=== PATIENT | female | born 1965 | race Native Hawaiian/Other Pacific Islander ===

== ENCOUNTER 2016-04-26 11:34 | Outpatient (CLI) | payer OTHER ==
[~2016-04-26 11:34] MED LIST: CALCIUM + D600 MG PO; CARAFATE1 GM PO; CLINDAMYCIN300 MG PO; CLON1TAB18 PO; CYCL10TA35 PO; FISH OIL1200 M1 PO; FURO20TA67 PO; GRALISE600 MG PO; HYDACET7.5 PO; IBUPROFEN200 MG PO; LISI5TAB10 PO; MECLIZINE25 M1 PO; METAN1 PO; METF500T PO; NAPROSYN500 MG PO; NEURONTIN800 MG PO; NEXIUM40 M1 PO; NYST100048 PO; OXYB5TAB56 PO; PROAIR HFA IN; TOPAMAX25 MG PO; TOPAMAX50 MG PO; TRAM50TA PO
[2016-04-26 13:03] LABS: PLATELET COUNT 293 K/uL (152-353)
[2016-04-26 13:57] LABS: SODIUM 136 mmol/L (136-145)
== END 2016-04-26 19:15 | disposition home or self-care (01) ==
LOC: LABW 11:34
PROVIDERS: Family Medicine
DX: I10 Essential (primary) hypertension (principal); E11.9 Type 2 diabetes mellitus without complications; K21.9 Gastro-esophageal reflux disease without esophagitis; M25.562 Pain in left knee
CPT/HCPCS: 36415; 80053; 80061; 81000; 82043; 82306; 82570; 83036; 84439; 84443; 84550; 85027

== ENCOUNTER 2016-05-23 09:34 | Outpatient (CLI) | payer OTHER ==
[2016-05-23 09:55] LABS: PLATELET COUNT 288 K/uL (152-353)
[2016-05-23 13:00] LABS: POTASSIUM 4.1 mmol/L (3.6-5.2); SODIUM 137 mmol/L (136-145)
== END 2016-05-23 20:08 | disposition home or self-care (01) ==
LOC: LABW 09:34
PROVIDERS: Family Medicine
DX: I10 Essential (primary) hypertension (principal); E11.9 Type 2 diabetes mellitus without complications; K21.9 Gastro-esophageal reflux disease without esophagitis; M25.562 Pain in left knee; E55.9 Vitamin D deficiency, unspecified
CPT/HCPCS: 36415; 80053; 80061; 81000; 82043; 82306; 82570; 83036; 84439; 84443; 84550; 85027

== ENCOUNTER 2016-06-22 09:07 | Outpatient (CLI) | payer OTHER | END 2016-06-22 19:13 | disposition home or self-care (01) | LOC: MAMMO 09:07 | DX: Z12.31 Encounter for screening mammogram for malignant neoplasm of breast (principal) | CPT/HCPCS: G0202-TC ==

== ENCOUNTER 2018-03-30 08:44 | Emergency (ER) | payer BC ==
[~2018-03-30] VITALS: Ht 162.6 cm; Wt 90.7 kg
[2018-03-30 09:10] VITALS: TEMP 98.5
[2018-03-30 09:41] VITALS: BP 118/92
== END 2018-03-30 09:41 | disposition home or self-care (01) ==
LOC: ED 08:44
DX: R59.9 Enlarged lymph nodes, unspecified (principal); E11.9 Type 2 diabetes mellitus without complications
CPT/HCPCS: 99281

== ENCOUNTER 2018-04-03 10:23 | Outpatient (CLI) | payer BC | END 2018-04-03 22:32 | disposition home or self-care (01) | LOC: RAD 10:23 | DX: R59.0 Localized enlarged lymph nodes (principal) ==

== ENCOUNTER 2018-05-22 11:40 | Outpatient (CLI) | payer BC, OTHER | END 2018-05-22 20:29 | disposition home or self-care (01) | LOC: RESP 11:40 | DX: I10 Essential (primary) hypertension (principal) | CPT/HCPCS: 93005 ==

== ENCOUNTER 2018-07-27 14:24 | Observation (INO) | payer BC, OTHER ==
[~2018-07-27] VITALS: Ht 162.6 cm; Wt 92.8 kg
[2018-07-27 15:47] LABS: PLATELET COUNT 568 K/uL (152-353)
[2018-07-27 16:09] LABS: POTASSIUM 4.3 mmol/L (3.6-5.2)
[2018-07-27 16:45] VITALS: BP 150/93; TEMP 97.6; Ht 162.6 cm; Wt 92.8 kg
[2018-07-27 20:00] VITALS: BP 106/67; TEMP 98.3
[2018-07-27] MEDS ORDERED: RANITIDINE 150150 MG PO (21:07)
[2018-07-27] MEDS ORDERED: PRED10TA27 PO (21:10)
[2018-07-27] MEDS ORDERED: BENA10TA3 PO (21:11)
[2018-07-27] MEDS ORDERED: PROMETHAZINE HY25 MG PO (21:12)
[2018-07-27] MEDS ORDERED: TRAMADOL HYDROC50 MG PO (21:13)
[2018-07-27] MEDS ORDERED: ALLERCLEAR10 MG PO (21:14)
[2018-07-27] MEDS ORDERED: METFORMIN ER1000 MG PO (21:14)
[2018-07-27] MEDS ORDERED: FURO20TA67 PO (21:15)
[2018-07-27] MEDS ORDERED: CYCL10TA35 PO (21:15)
[2018-07-27] MEDS ORDERED: LOVASTATIN10 MG PO (21:16)
[2018-07-27] MEDS ORDERED: PAROXETINE10 MG PO (21:17)
[2018-07-27] MEDS ORDERED: OMEPRAZOLE DR40 MG PO (21:18)
[2018-07-27] MEDS ORDERED: NEURONTIN800 MG PO (21:20)
[2018-07-27] MEDS ORDERED: CALTRATE 600+D1 TAB PO (21:22)
[2018-07-27] MEDS ORDERED: HYDROCO/APAP1 T14 PO (21:22)
[2018-07-27] MEDS ORDERED: IRON27 MG PO (21:24)
[2018-07-27] MEDS ORDERED: CLONAZEP ODT1 MG PO (21:25)
[2018-07-27] MEDS ORDERED: MOBIC15 MG PO (21:25)
[2018-07-27] MEDS ORDERED: GLIM2TAB PO (21:26)
[2018-07-27] MEDS ORDERED: LEVOFLOXACIN500 MG PO (21:26)
[2018-07-27] MEDS ORDERED: TOPAMAX50 MG PO (21:55)
[2018-07-28] VITALS: BP 123/71; TEMP 98
[2018-07-28 04:00] VITALS: BP 114/73; TEMP 98
[2018-07-28 08:00] VITALS: BP 129/78; TEMP 97.9
[2018-07-28 08:29] LABS: PLATELET COUNT 500 K/uL (152-353)
[2018-07-28 08:44] LABS: POTASSIUM 3.4 mmol/L (3.6-5.2)
== END 2018-07-28 13:38 | disposition home or self-care (01) ==
LOC: MED/SURG 14:24
PROVIDERS: ADMIT Family Medicine
DX: K52.89 Other specified noninfective gastroenteritis and colitis (principal); R11.2 Nausea with vomiting, unspecified; R19.7 Diarrhea, unspecified; I10 Essential (primary) hypertension; K21.9 Gastro-esophageal reflux disease without esophagitis; E11.9 Type 2 diabetes mellitus without complications; J44.0 Chronic obstructive pulmonary disease with (acute) lower respiratory infection; J20.9 Acute bronchitis, unspecified
CPT/HCPCS: 80053; 81000; 85027; 87086; 87088; 94640; 94664; 94760; 96365; 96366; 99220; G0378; G0379; J1650; J1956

== ENCOUNTER 2018-09-17 12:55 | Outpatient (CLI) | payer BC, OTHER ==
[~2018-09-17 12:55] MED LIST changes: +ALLERCLEAR10 MG PO; +BENA10TA3 PO; +CALTRATE 600+D1 TAB PO; +CLONAZEP ODT1 MG PO; +GLIM2TAB PO; +HYDROCO/APAP1 T14 PO; +IRON27 MG PO; +LEVOFLOXACIN500 MG PO; +LOVASTATIN10 MG PO; +METFORMIN ER1000 MG PO; +MOBIC15 MG PO; +OMEPRAZOLE DR40 MG PO; +PAROXETINE10 MG PO; +PRED10TA27 PO; +PROMETHAZINE HY25 MG PO; +RANITIDINE 150150 MG PO; +TRAMADOL HYDROC50 MG PO
== END 2018-09-17 19:54 | disposition home or self-care (01) ==
LOC: RAD 12:55
DX: R05 Cough (principal)

== ENCOUNTER 2018-12-28 10:58 | Outpatient (CLI) | payer OTHER | END 2018-12-28 22:55 | disposition home or self-care (01) | LOC: RAD 10:58 | DX: G89.4 Chronic pain syndrome (principal); J44.9 Chronic obstructive pulmonary disease, unspecified; K21.9 Gastro-esophageal reflux disease without esophagitis ==

== ENCOUNTER 2019-04-12 16:03 | Outpatient (CLI) | payer OTHER | END 2019-04-12 22:41 | disposition home or self-care (01) | LOC: RAD 16:03 | DX: M79.673 Pain in unspecified foot (principal); M19.90 Unspecified osteoarthritis, unspecified site; M25.571 Pain in right ankle and joints of right foot; Z87.81 Personal history of (healed) traumatic fracture; N95.1 Menopausal and female climacteric states ==

== ENCOUNTER 2019-07-23 15:11 | Outpatient (CLI) | payer OTHER | END 2019-07-23 19:10 | disposition home or self-care (01) | LOC: LABW 15:11 | DX: R05 Cough (principal); R06.02 Shortness of breath; R44.9 Unspecified symptoms and signs involving general sensations and perceptions; R06.09 Other forms of dyspnea; J02.9 Acute pharyngitis, unspecified | CPT/HCPCS: 87502; 87651 ==

== ENCOUNTER 2019-09-27 16:51 | Outpatient (CLI) | payer OTHER ==
[2019-09-27 17:29] LABS: PLATELET COUNT 319 K/uL (152-353)
== END 2019-09-27 18:58 | disposition home or self-care (01) ==
LOC: LABW 16:51
PROVIDERS: Podiatrist
DX: Z01.810 Encounter for preprocedural cardiovascular examination (principal); Z01.811 Encounter for preprocedural respiratory examination; Z01.812 Encounter for preprocedural laboratory examination
CPT/HCPCS: 36415; 80053; 83036; 85027; 93005

== ENCOUNTER 2019-12-30 08:20 | Outpatient (CLI) | payer OTHER | END 2019-12-30 19:12 | disposition home or self-care (01) | LOC: RESP 08:20 | DX: R06.02 Shortness of breath (principal); J44.9 Chronic obstructive pulmonary disease, unspecified; E78.00 Pure hypercholesterolemia, unspecified; E11.9 Type 2 diabetes mellitus without complications | CPT/HCPCS: 93005 ==

== ENCOUNTER 2020-02-27 18:17 | Outpatient (CLI) | payer OTHER | END 2020-02-27 21:08 | disposition home or self-care (01) | LOC: LABW 18:17 | PROVIDERS: ATTEND Family Medicine | DX: Z20.2 Contact with and (suspected) exposure to infections with a predominantly sexual mode of transmission (principal) | CPT/HCPCS: 36415; 87535; G0432 ==

== ENCOUNTER 2020-04-23 13:50 | Outpatient (CLI) | payer OTHER | END 2020-04-23 21:16 | disposition home or self-care (01) | LOC: LAB 13:50 | PROVIDERS: ATTEND Family Medicine | DX: Z20.828 Contact with and (suspected) exposure to other viral communicable diseases (principal) | CPT/HCPCS: 87635; G2023; U0003 ==

== ENCOUNTER 2020-05-16 17:16 | Emergency (ER) | payer OTHER ==
[~2020-05-16] VITALS: Ht 152.4 cm; Wt 96.2 kg
[2020-05-16 18:26] VITALS: BP 121/79; TEMP 98.1
== END 2020-05-16 18:28 | disposition home or self-care (01) ==
LOC: ED 17:16
DX: M17.12 Unilateral primary osteoarthritis, left knee (principal)
CPT/HCPCS: 96372; 99283; J1885

== ENCOUNTER 2020-06-09 09:36 | Outpatient (CLI) | payer OTHER | END 2020-06-09 19:36 | disposition home or self-care (01) | LOC: RAD 09:36 | PROVIDERS: ATTEND Family Medicine | DX: R06.89 Other abnormalities of breathing (principal); R06.00 Dyspnea, unspecified | CPT/HCPCS: 93005 ==

== ENCOUNTER 2020-08-12 09:11 | Outpatient (CLI) | payer OTHER ==
[~2020-08-12] VITALS: Ht 152.4 cm; Wt 95.7 kg
[2020-08-12 10:07] VITALS: BP 134/77; TEMP 98.6
== END 2020-08-12 21:49 | disposition home or self-care (01) ==
LOC: INF 09:11
PROVIDERS: ATTEND Internal Medicine Endocrinology, Diabetes & Metabolism
DX: M80.00XA Age-related osteoporosis with current pathological fracture, unspecified site, initial encounter for fracture (principal)
CPT/HCPCS: 36415; 82310; 96372; J0897

== ENCOUNTER 2020-10-29 08:16 | Outpatient (CLI) | payer OTHER | END 2020-10-29 19:07 | disposition home or self-care (01) | LOC: LAB 08:16 | PROVIDERS: ATTEND Family Medicine | DX: Z20.822 Contact with and (suspected) exposure to COVID-19 (principal) | CPT/HCPCS: 87635; G2023; U0003 ==

== ENCOUNTER 2020-12-03 11:36 | Outpatient (CLI) | payer OTHER | END 2020-12-03 19:38 | disposition home or self-care (01) | LOC: LAB 11:36 | PROVIDERS: ATTEND Family Medicine | DX: Z20.822 Contact with and (suspected) exposure to COVID-19 (principal) | CPT/HCPCS: 87635; G2023; U0003 ==

== ENCOUNTER 2021-02-26 10:00 | Outpatient (CLI) | payer OTHER ==
[~2021-02-26] VITALS: Ht 152.4 cm; Wt 95.7 kg
== END 2021-02-26 20:49 | disposition home or self-care (01) ==
LOC: INF 10:00
PROVIDERS: ATTEND Internal Medicine
DX: M80.0AXA Age-related osteoporosis with current pathological fracture, other site, initial encounter for fracture (principal)
CPT/HCPCS: 36415; 82310; 96372; J0897

== ENCOUNTER 2021-04-30 08:25 | Outpatient (CLI) | payer OTHER | END 2021-04-30 20:34 | disposition home or self-care (01) | LOC: LAB 08:25 | PROVIDERS: ATTEND Family Medicine | DX: Z20.822 Contact with and (suspected) exposure to COVID-19 (principal) | CPT/HCPCS: 87635; G2023; U0003 ==

== ENCOUNTER 2021-05-14 06:09 | Outpatient (CLI) | payer OTHER | END 2021-05-14 23:02 | disposition home or self-care (01) | LOC: LABW 06:09 | PROVIDERS: ATTEND Family Medicine | DX: U07.1 COVID-19 (principal); R05.9 Cough, unspecified; J20.9 Acute bronchitis, unspecified; J44.9 Chronic obstructive pulmonary disease, unspecified; Z11.52 Encounter for screening for COVID-19 | CPT/HCPCS: 87635; G2023; U0003 ==

== ENCOUNTER 2021-07-30 09:08 | Outpatient (CLI) | payer OTHER | END 2021-07-30 20:56 | disposition home or self-care (01) | LOC: MAMMO 09:08 | PROVIDERS: ATTEND Family Medicine | DX: Z12.31 Encounter for screening mammogram for malignant neoplasm of breast (principal); N95.1 Menopausal and female climacteric states ==

== ENCOUNTER 2021-09-09 14:42 | Outpatient (CLI) | payer OTHER ==
[2021-09-09 15:38] LABS: PLATELET COUNT 269 K/uL (152-353)
[2021-09-09 16:00] LABS: POTASSIUM 4.3 mmol/L (3.6-5.2)
== END 2021-09-09 19:25 | disposition home or self-care (01) ==
LOC: RAD 14:42
PROVIDERS: ATTEND Family Medicine
DX: R10.9 Unspecified abdominal pain (principal); R11.10 Vomiting, unspecified; R51.9 Headache, unspecified; E11.9 Type 2 diabetes mellitus without complications
CPT/HCPCS: 36415; 80053; 81000; 83690; 84439; 84443; 85027

== ENCOUNTER 2021-09-14 14:55 | Observation (INO) | payer OTHER ==
[~2021-09-14] VITALS: Ht 152.4 cm; Wt 79.4 kg
[2021-09-14 16:07] LABS: PLATELET COUNT 218 K/uL (152-353)
[2021-09-14 16:09] VITALS: BP 129/88; TEMP 98.2; Ht 152.4 cm; Wt 79.4 kg
[2021-09-14 16:26] LABS: POTASSIUM 4.1 mmol/L (3.6-5.2)
[2021-09-14 19:36] VITALS: BP 111/75; TEMP 97.6
[2021-09-14] MEDS ORDERED: MOBIC15 MG PO (21:09)
[2021-09-14] MEDS ORDERED: CLON1TAB18 PO (21:10)
[2021-09-14] MEDS ORDERED: ROPINIROLE1 MG PO (21:12)
[2021-09-14] MEDS ORDERED: METFORMIN HYD1000 MG PO (21:12)
[2021-09-14] MEDS ORDERED: TOPIRAMATE50 MG PO (21:15)
[2021-09-14] MEDS ORDERED: METOCLOPRAM5 MG PO (21:17)
[2021-09-14] MEDS ORDERED: TIZANIDINE HYDRO4 M1 PO (21:18)
[2021-09-15 00:07] VITALS: BP 124/73; TEMP 97.9
[2021-09-15 03:59] VITALS: BP 95/61; TEMP 98
[2021-09-15 08:00] VITALS: BP 109/62; TEMP 98
[2021-09-15 12:00] VITALS: BP 127/93; TEMP 98.3
[2021-09-15 13:09] LABS: PLATELET COUNT 221 K/uL (152-353)
[2021-09-15 13:22] LABS: POTASSIUM 4.3 mmol/L (3.6-5.2)
== END 2021-09-15 14:58 | disposition home or self-care (01) ==
LOC: MED/SURG 14:55
PROVIDERS: ADMIT Family Medicine; ATTEND Family Medicine
DX: N17.8 Other acute kidney failure (principal); E86.0 Dehydration; E11.9 Type 2 diabetes mellitus without complications; D64.89 Other specified anemias; R63.0 Anorexia; K21.9 Gastro-esophageal reflux disease without esophagitis; R10.9 Unspecified abdominal pain; U07.1 COVID-19
CPT/HCPCS: 80053; 81000; 82728; 82948; 83540; 83550; 83690; 84443; 85027; 87635; 96360; 96361; 96374; 96375; 99220; G0378; G0379; J3490; U0003

== ENCOUNTER 2022-04-13 07:56 | Outpatient (CLI) | payer OTHER ==
[~2022-04-13] VITALS: Ht 152.4 cm; Wt 68.0 kg
[~2022-04-13 07:56] MED LIST changes: +METFORMIN HYD1000 MG PO; +METOCLOPRAM5 MG PO; +ROPINIROLE1 MG PO; +TIZANIDINE HYDRO4 M1 PO; +TOPIRAMATE50 MG PO
[2022-04-13 08:08] VITALS: BP 106/63; TEMP 98.6
== END 2022-04-13 19:00 | disposition home or self-care (01) ==
LOC: INF 07:56
PROVIDERS: ATTEND Internal Medicine
DX: M81.0 Age-related osteoporosis without current pathological fracture (principal)
CPT/HCPCS: 36415; 82310; 96372; J0897

== ENCOUNTER 2022-05-31 15:10 | Outpatient (CLI) | payer OTHER ==
[~2022-05-31 15:10] MED LIST changes: +MEDROL DOSEPAK4 MG PO; +Z-PAK PO
[2022-06-01] MEDS ORDERED: MECLIZINE 2525 MG PO (13:58)
[2022-06-01] MEDS ORDERED: CETI10TA PO (14:02)
[2022-06-01] MEDS ORDERED: TRAMADOL HYDROC50 MG PO (14:02)
[2022-06-01] MEDS ORDERED: HYDROXYZINE HYD25 MG PO (14:04)
[2022-06-01] MEDS ORDERED: LANTUS100 UNIT/M SC (14:05)
[2022-06-01] MEDS ORDERED: GEMFIBROZIL PO (14:06)
[2022-06-01] MEDS ORDERED: IRON325 MG PO (14:06)
[2022-06-01] MEDS ORDERED: VITAMIN B-121000 MC2 PO (14:07)
[2022-06-01] MEDS ORDERED: OMEP40CA PO (14:08)
[2022-06-01] MEDS ORDERED: CALCIUM600 M1 PO (14:08)
== END 2022-05-31 19:41 | disposition home or self-care (01) ==
LOC: LABW 15:10
PROVIDERS: ATTEND Family Medicine
DX: D64.9 Anemia, unspecified (principal); R42 Dizziness and giddiness; R51.9 Headache, unspecified; E11.9 Type 2 diabetes mellitus without complications
CPT/HCPCS: 36415; 82607; 82728; 82746; 83540; 83550

== ENCOUNTER 2022-06-01 10:55 | Observation (INO) | payer OTHER ==
[~2022-06-01] VITALS: Ht 152.4 cm; Wt 77.6 kg
[2022-06-01 12:46] LABS: PLATELET COUNT 413 K/uL (152-353)
[2022-06-01 13:04] LABS: POTASSIUM 4.4 mmol/L (3.6-5.2)
[2022-06-01] MEDS ORDERED: MECLIZINE 2525 MG PO (13:58)
[2022-06-01] MEDS ORDERED: TRAMADOL HYDROC50 MG PO (14:02)
[2022-06-01] MEDS ORDERED: CETI10TA PO (14:02)
[2022-06-01] MEDS ORDERED: HYDROXYZINE HYD25 MG PO (14:04)
[2022-06-01] MEDS ORDERED: LANTUS100 UNIT/M SC (14:05)
[2022-06-01] MEDS ORDERED: GEMFIBROZIL PO (14:06)
[2022-06-01] MEDS ORDERED: IRON325 MG PO (14:06)
[2022-06-01] MEDS ORDERED: VITAMIN B-121000 MC2 PO (14:07)
[2022-06-01] MEDS ORDERED: OMEP40CA PO (14:08)
[2022-06-01] MEDS ORDERED: CALCIUM600 M1 PO (14:08)
[2022-06-01 16:00] VITALS: BP 101/64; BP 83/52; TEMP 97.2
[2022-06-01 18:41] VITALS: BP 95/55; TEMP 97.7; Ht 152.4 cm; Wt 77.6 kg
[2022-06-01 20:00] VITALS: BP 94/51; TEMP 97.8
[2022-06-01 23:39] LABS: PLATELET COUNT 371 K/uL (152-353)
[2022-06-02] VITALS (14 sets, daily range): BP systolic 87–125; BP diastolic 50–81; TEMP 97–98.5
[2022-06-02 17:21] LABS: POTASSIUM 4.2 mmol/L (3.6-5.2)
[2022-06-03] VITALS: BP 107/70; TEMP 98.5
[2022-06-03 04:00] VITALS: BP 105/68; TEMP 98.4
[2022-06-03 08:00] VITALS: BP 105/68; TEMP 98.1
== END 2022-06-03 10:21 | disposition home or self-care (01) ==
LOC: MED/SURG 10:55
PROVIDERS: ADMIT Family Medicine; ATTEND Family Medicine
PROC: 30233N1 Transfusion of Nonautologous Red Blood Cells into Peripheral Vein, Percutaneous Approach (ICD-10-PCS; principal; 2022-06-02)
DX: D64.89 Other specified anemias (principal); E86.0 Dehydration; E78.49 Other hyperlipidemia; G47.33 Obstructive sleep apnea (adult) (pediatric); J44.9 Chronic obstructive pulmonary disease, unspecified; K21.9 Gastro-esophageal reflux disease without esophagitis; F41.8 Other specified anxiety disorders; E11.42 Type 2 diabetes mellitus with diabetic polyneuropathy; R42 Dizziness and giddiness; H66.93 Otitis media, unspecified, bilateral; R11.2 Nausea with vomiting, unspecified; R51.9 Headache, unspecified; I12.9 Hypertensive chronic kidney disease with stage 1 through stage 4 chronic kidney disease, or unspecified chronic kidney disease; E11.22 Type 2 diabetes mellitus with diabetic chronic kidney disease; N18.32 Chronic kidney disease, stage 3b
CPT/HCPCS: 36430; 80053; 81002; 82272; 82947; 82948; 85014; 85018; 85027; 86850; 86900; 86901; 86922; 87635; 96361; 96365; 96367; 96374; 96375; 99220; G0378; G0379; J0696; J3490; P9016; U0003

== ENCOUNTER 2022-08-16 17:43 | Outpatient (CLI) | payer OTHER ==
[~2022-08-16 17:43] MED LIST changes: +CALCIUM600 M1 PO; +CETI10TA PO; +GEMFIBROZIL PO; +HYDROXYZINE HYD25 MG PO; +IRON325 MG PO; +LANTUS100 UNIT/M SC; +MECLIZINE 2525 MG PO; +OMEP40CA PO; +VITAMIN B-121000 MC2 PO
[2022-08-16 18:20] LABS: PLATELET COUNT 416 K/uL (152-353)
== END 2022-08-16 19:14 | disposition home or self-care (01) ==
LOC: LABW 17:43
PROVIDERS: ATTEND Internal Medicine Gastroenterology
DX: D50.8 Other iron deficiency anemias (principal)
CPT/HCPCS: 36415; 85027

== ENCOUNTER 2022-10-03 10:22 | Outpatient (CLI) | payer OTHER ==
[~2022-10-03 10:22] MED LIST changes: +CYCLOBENZAPRINE10 MG PO; +IBU800 MG PO; +JANUVIA100 MG PO; +METOCLOPRAMIDE10 M1 PO; +PANTOPRAZOLE 40MG TA PO
[2022-10-03 10:46] LABS: POTASSIUM 4.7 mmol/L (3.6-5.2)
[2022-10-03 11:01] LABS: PLATELET COUNT 308 K/uL (152-353)
== END 2022-10-03 18:57 | disposition home or self-care (01) ==
LOC: LABW 10:22
PROVIDERS: ATTEND Family Medicine
DX: D64.89 Other specified anemias (principal); N17.9 Acute kidney failure, unspecified
CPT/HCPCS: 36415; 80053; 85027

== ENCOUNTER 2022-10-11 15:03 | Observation (INO) | payer OTHER ==
[~2022-10-11] VITALS: Ht 152.4 cm; Wt 86.3 kg
[2022-10-11 15:03] VITALS: BP 102/57; TEMP 98
[~2022-10-11 15:03] MED LIST changes: +PARO20TA3 PO; -PAROXETINE10 MG PO
[2022-10-11 15:50] VITALS: BP 112/69; BP 115/78; BP 126/89
[2022-10-11 15:52] LABS: PLATELET COUNT 333 K/uL (152-353)
[2022-10-11 16:13] LABS: POTASSIUM 4.2 mmol/L (3.6-5.2)
[2022-10-11 19:30] VITALS: BP 128/78; TEMP 98.2; Ht 152.4 cm; Wt 86.3 kg
[2022-10-11 20:00] VITALS: BP 114/77; TEMP 97.5
[2022-10-11] MEDS ORDERED: TOPIRAMATE50 MG PO ×2 (20:26)
[2022-10-12] VITALS (8 sets, daily range): BP systolic 81–109; BP diastolic 59–70; TEMP 97.7–98.1
[2022-10-12 03:50] LABS: PLATELET COUNT 258 K/uL (152-353)
[2022-10-12 04:14] LABS: POTASSIUM 3.8 mmol/L (3.6-5.2)
[2022-10-13] VITALS (8 sets, daily range): BP systolic 92–123; BP diastolic 55–79; TEMP 97.7–98.8
[2022-10-13 10:32] LABS: PLATELET COUNT 281 K/uL (152-353)
[2022-10-13 11:03] LABS: POTASSIUM 4.2 mmol/L (3.6-5.2)
[2022-10-14 02:02] LABS: POTASSIUM 4.5 mmol/L (3.6-5.2)
[2022-10-14 02:10] LABS: PLATELET COUNT 274 K/uL (152-353)
[2022-10-14 04:00] VITALS: BP 100/57; TEMP 98.4
[2022-10-14 08:00] VITALS: BP 100/58; TEMP 98.6
== END 2022-10-14 10:20 | disposition home or self-care (01) ==
LOC: ED 15:03 → MED/SURG 16:26
PROVIDERS: Family Medicine; ADMIT Nurse Practitioner Family; ATTEND Family Medicine
DX: R41.82 Altered mental status, unspecified (principal); R51.9 Headache, unspecified; E86.0 Dehydration; D64.89 Other specified anemias; N18.9 Chronic kidney disease, unspecified; N17.8 Other acute kidney failure; G47.33 Obstructive sleep apnea (adult) (pediatric); Z99.81 Dependence on supplemental oxygen; R53.1 Weakness; R19.5 Other fecal abnormalities; I95.89 Other hypotension; E11.9 Type 2 diabetes mellitus without complications; Z79.4 Long term (current) use of insulin; I12.9 Hypertensive chronic kidney disease with stage 1 through stage 4 chronic kidney disease, or unspecified chronic kidney disease
CPT/HCPCS: 36415; 36430; 80053; 80307; 81002; 82272; 82550; 82728; 82948; 83540; 83550; 84484; 85027; 85044; 86850; 86900; 86901; 86922; 93005; 94760; 96360; 96361; 99221; 99284; G0378; P9016

== ENCOUNTER 2022-10-15 16:51 | Outpatient (CLI) | payer OTHER | END 2022-10-15 18:55 | disposition home or self-care (01) | LOC: LABW 16:51 | PROVIDERS: ATTEND Family Medicine | DX: D64.89 Other specified anemias (principal) | CPT/HCPCS: 82272 ==

== ENCOUNTER 2022-10-16 12:16 | Outpatient (CLI) | payer OTHER | END 2022-10-16 18:41 | disposition home or self-care (01) | LOC: LAB 12:16 | PROVIDERS: ATTEND Family Medicine | DX: D64.89 Other specified anemias (principal) | CPT/HCPCS: 82272 ==

== ENCOUNTER 2022-12-06 16:01 | Outpatient (CLI) | payer OTHER ==
[2022-12-06 16:23] LABS: PLATELET COUNT 439 K/uL (152-353)
[2022-12-06] MEDS ORDERED: CEPH500C20 PO (20:07)
[2022-12-07] MEDS ORDERED: ONDANSETRON ODT PO (20:08)
[2022-12-07] MEDS ORDERED: OXYB5TAB64 PO (20:09)
[2022-12-07] MEDS ORDERED: CETI10TA PO (20:10)
[2022-12-07] MEDS ORDERED: VITAMIN D PO (20:11)
[2022-12-07] MEDS ORDERED: NATURAL ZINC50 MG PO (20:12)
[2022-12-07] MEDS ORDERED: VITAMIN C1000 MG PO (20:12)
== END 2022-12-06 20:54 | disposition home or self-care (01) ==
LOC: LABW 16:01
PROVIDERS: ATTEND Family Medicine
DX: D64.89 Other specified anemias (principal)
CPT/HCPCS: 36415; 85027

== ENCOUNTER 2022-12-13 12:20 | Outpatient (CLI) | payer OTHER ==
[~2022-12-13 12:20] MED LIST changes: +CEPH500C20 PO; +NATURAL ZINC50 MG PO; +ONDANSETRON ODT PO; +OXYB5TAB64 PO; +VITAMIN C1000 MG PO; +VITAMIN D PO
[2022-12-13 13:11] LABS: POTASSIUM 4.2 mmol/L (3.6-5.2)
== END 2022-12-13 19:05 | disposition home or self-care (01) ==
LOC: LABW 12:20
PROVIDERS: ATTEND Family Medicine
DX: R00.1 Bradycardia, unspecified (principal); R53.83 Other fatigue; R40.0 Somnolence
CPT/HCPCS: 36415; 80048; 82550; 84443; 84484; 85014; 85018; 93005

== ENCOUNTER 2022-12-14 12:30 | Observation (INO) | payer OTHER ==
[~2022-12-14] VITALS: Ht 152.4 cm; Wt 87.2 kg
[2022-12-14 14:09] VITALS: BP 141/93; TEMP 97.5; Ht 152.4 cm; Wt 87.2 kg
[2022-12-14 15:36] LABS: PLATELET COUNT 338 K/uL (152-353); POTASSIUM 3.9 mmol/L (3.6-5.2)
[2022-12-14 16:00] VITALS: BP 140/65; TEMP 97.5
[2022-12-14 19:48] VITALS: BP 104/57; TEMP 98.5
[2022-12-15] VITALS: BP 105/68; TEMP 97.7
[2022-12-15 03:36] VITALS: BP 96/55; TEMP 98.3
[2022-12-15 05:00] LABS: PLATELET COUNT 296 K/uL (152-353)
[2022-12-15 05:16] LABS: POTASSIUM 4.1 mmol/L (3.6-5.2)
[2022-12-15 08:05] VITALS: BP 103/62; TEMP 97.3
[2022-12-15 12:00] VITALS: BP 107/69; TEMP 98.3
== END 2022-12-15 13:32 | disposition home or self-care (01) ==
LOC: MED/SURG 12:30
PROVIDERS: ADMIT Family Medicine; ATTEND Family Medicine
DX: E86.0 Dehydration (principal); N17.8 Other acute kidney failure; H66.91 Otitis media, unspecified, right ear; D64.89 Other specified anemias; Z77.22 Contact with and (suspected) exposure to environmental tobacco smoke (acute) (chronic)
CPT/HCPCS: 80053; 85027; 96361; 96365; 96367; 99221; G0378; G0379; J0696; J2405; J3490

== ENCOUNTER 2022-12-29 08:24 | Outpatient (CLI) | payer OTHER | END 2022-12-29 18:34 | disposition home or self-care (01) | LOC: LABW 08:24 | PROVIDERS: ATTEND Family Medicine | DX: E78.00 Pure hypercholesterolemia, unspecified (principal); E11.9 Type 2 diabetes mellitus without complications; K21.9 Gastro-esophageal reflux disease without esophagitis; N18.30 Chronic kidney disease, stage 3 unspecified; E55.9 Vitamin D deficiency, unspecified; Z79.899 Other long term (current) drug therapy; I12.9 Hypertensive chronic kidney disease with stage 1 through stage 4 chronic kidney disease, or unspecified chronic kidney disease | CPT/HCPCS: 36415; 80061; 82306; 83036; 83735; 84550 ==

== ENCOUNTER 2022-12-30 14:01 | Outpatient (CLI) | payer OTHER ==
[2022-12-30 15:35] LABS: PLATELET COUNT 403 K/uL (152-353)
[2022-12-30 15:41] LABS: POTASSIUM 3.6 mmol/L (3.6-5.2)
== END 2022-12-30 19:21 | disposition home or self-care (01) ==
LOC: LABW 14:01
PROVIDERS: ATTEND Student in an Organized Health Care Education/Training Program
DX: N17.9 Acute kidney failure, unspecified (principal); D63.1 Anemia in chronic kidney disease; E79.0 Hyperuricemia without signs of inflammatory arthritis and tophaceous disease; R80.8 Other proteinuria; N25.81 Secondary hyperparathyroidism of renal origin; Z79.899 Other long term (current) drug therapy; E11.65 Type 2 diabetes mellitus with hyperglycemia; B18.2 Chronic viral hepatitis C; E55.9 Vitamin D deficiency, unspecified; D50.8 Other iron deficiency anemias; N18.9 Chronic kidney disease, unspecified; I12.9 Hypertensive chronic kidney disease with stage 1 through stage 4 chronic kidney disease, or unspecified chronic kidney disease
CPT/HCPCS: 36415; 80053; 81002; 82248; 82306; 82550; 83036; 83735; 83970; 84100; 84165; 84550; 85027; 86037; 86160; 86592; 87535; G0432

== ENCOUNTER 2023-01-03 07:54 | Outpatient (CLI) | payer OTHER | END 2023-01-03 20:42 | disposition home or self-care (01) | LOC: US 07:54 | PROVIDERS: ATTEND Student in an Organized Health Care Education/Training Program | DX: N17.9 Acute kidney failure, unspecified (principal); D63.1 Anemia in chronic kidney disease; E11.9 Type 2 diabetes mellitus without complications; E79.0 Hyperuricemia without signs of inflammatory arthritis and tophaceous disease; R80.8 Other proteinuria; N25.81 Secondary hyperparathyroidism of renal origin; N18.9 Chronic kidney disease, unspecified; I12.9 Hypertensive chronic kidney disease with stage 1 through stage 4 chronic kidney disease, or unspecified chronic kidney disease | CPT/HCPCS: 36415; 86701; 86702; 87389 ==

== ENCOUNTER 2023-01-25 10:48 | Outpatient (CLI) | payer OTHER | END 2023-01-25 19:28 | disposition home or self-care (01) | LOC: MAMMO 10:48 | PROVIDERS: ATTEND Family Medicine | DX: Z12.31 Encounter for screening mammogram for malignant neoplasm of breast (principal) ==

== ENCOUNTER 2023-05-17 11:59 | Outpatient (CLI) | payer OTHER ==
[2023-05-17 12:46] LABS: PLATELET COUNT 406 K/uL (152-353)
== END 2023-05-17 19:27 | disposition home or self-care (01) ==
LOC: LABW 11:59
PROVIDERS: ATTEND Family Medicine
DX: R23.8 Other skin changes (principal)
CPT/HCPCS: 85027; 85379; 85610; 85730